=== PATIENT | male | born 1980 | race Two or more races ===

== ENCOUNTER 2018-04-17 09:04 | Day surgery (SDC) | payer OTHER ==
[~2018-04-17] VITALS: Ht 162.6 cm; Wt 113.4 kg
[2018-04-17] VITALS (8 sets, daily range): BP systolic 104–152; BP diastolic 65–98
--- NOTE | 2018-04-17 08:03 | Anethesia Preoperative Eval ---
Anesthesia Pre-op PMH/ROS General Date of Evaluation: Apr 17, 2018 Time of Evaluation: 07:58 Anesthesiologist: keron ASA Score: ASA 2 Mallampati Score Class I : Soft palate, uvula, fauces, pillars visible Class II: Soft palate, uvula, fauces visible Class III: Soft palate, base of uvula visible Class IV: Only hard plate visible Mallampati Classification: Class II Surgeon: naida Diagnosis: abdominal pain Surgical Procedure: colonoscopy Anesthesia History: none Social History: smoking - former smoker Family History: no anesthesia problems Allergies: Coded Allergies: No Known Allergies (Unverified , 04/17/18) Medications: see eMAR Patient NPO?: Yes Past Medical History Pulmonary: Reports: JERONIMO Gastrointestinal/Genitourinary: Reports: other - hemorrhoids Neurologic/Psychiatric: Reports: depression/anxiety Other: obesity PSxH Narrative: orif right ankle Anesthesia Pre-op Phys. Exam Physician Exam Constitutional: NAD Neurologic: CN 2-12 intact Cardiovascular: RRR Respiratory: CTA Gastrointestinal: S/NT/ND Airway Exam Mallampati Score: Class II MO: limited Neck: short TMD: 2fb ROM: limited Anesthesia Pre-op A/P Risk Assessment & Plan Assessment: asa2 Plan: mac Status Change Before Surgery: No Pre-Antibiotics Drug: Jovanna Mendez MD Apr 17, 2018 08:03
[~2018-04-17 09:04] MED LIST: Atropine Inj 1mg/10ml Syr IV PRN; DiphenhydrAMINE 50mg/ml Inj IVP PRN; Midazolam 2mg/2ml Inj IVP PRN; fentaNYL 100 mcg/2 mL IV PRN
[2018-04-17] MEDS ORDERED: TRAMADOL HCL50 MG ORAL (09:34)
[2018-04-17] MEDS ORDERED: GABAPENTIN300 MG ORAL (09:34)
[2018-04-17] MEDS ORDERED: PREDNISONE20 MG ORAL (09:34)
[2018-04-17] MEDS ORDERED: CYCLOBENZAPRINE10 MG ORAL (09:34)
[2018-04-17] MEDS ORDERED: HYOSCYAMINE0.125 M2 PO (09:34)
[2018-04-17] MEDS ORDERED: OMEPRAZOLE20 M2 ORAL (09:34)
--- NOTE | 2018-04-17 09:56 | Short Stay Surgery H&P ---
History of Present Illness History of Present Illness Chief Complaint Rectal bleeding/abdominal pains ANTHONY Triplett is a 37 year old male who was admitted on for Rectal bleeding /abdominal pains. Patient History Allergies: Coded Allergies: No Known Allergies (Unverified , 04/17/18) Medication History Scheduled Cyclobenzaprine Hcl* (Flexeril*), 10 MG ORAL BEDTIME, (Reported) Gabapentin* (Gabapentin*), 300 MG ORAL BID, (Reported) Hyoscyamine Sulfate (Hyoscyamine Sulfate), 0.125 MG PO DAILY, (Reported) Omeprazole (Omeprazole), 20 MG ORAL DAILY, (Reported) Prednisone* (Prednisone*), 20 MG ORAL BID, (Reported) Scheduled PRN Tramadol Hcl* (Ultram*), 50 MG ORAL BID PRN for For Pain, (Reported) Review of Systems Cardiovascular: Reports: no symptoms Respiratory: Reports: no symptoms Skeletal: Reports: trauma Gastrointestinal: Reports: other Genitourinary: Reports: no symptoms Neurologic: Reports: no symptoms Endocrine: Reports: no symptoms Hematologic: Reports: no symptoms Physical Exam Vital Signs Last Vital Signs Date Time Temp Pulse Resp B/P (MAP) Pulse Ox O2 Delivery O2 Flow Rate FiO2 04/17/18 09:34 Room Air 04/17/18 09:29 97.5 67 20 113/70 96 Skin: normal HENT: normal Heart: normal Lungs: normal Abdomen: abnormal Extremities: normal Genitourinary: normal Plan Plan of Care Total colonoscopy Preop Interventions None. Summary of Findings See the reports Attestation Are the patient's medical conditions optimized for surgery? Attestation Response: yes Canelo Schroeder MD Apr 17, 2018 09:56
--- NOTE | 2018-04-17 09:58 | Pre-Procedure Note/Attestation ---
Pre-Procedure Note/Attestation Complete Prior to Procedure Planned Procedure: left Procedure Narrative: Examination of the colon via colonoscopy Indications for Procedure Pre-Operative Diagnosis: R/O hemorrhoids /polyps/colitis Attestation I attest that I discussed the nature of the procedure; its benefits; risks and complications; and alternatives (and the risks and benefits of such alternatives ), prior to the procedure, with the patient (or the patient's legal territory representative). I attest that, if there was a reasonable possibility of needing a blood transfusion, the patient (or the patient's legal territory representative) was given the [facility] standardized written summary, pursuant to the [place] Blood Safety Act ([place] Health and Safety Code # 1645, as amended). I attest that I re-evaluated the patient just prior to the surgery and that there has been no change in the patient's H&P, except as documented below: Canelo Schroeder MD Apr 17, 2018 09:58
[2018-04-17] MEDS ORDERED: Lidocaine 1% MPF 10mg/ml 5ml ONE (10:00)
[2018-04-17] MEDS ORDERED: LR 1000ml ONE (10:00)
[2018-04-17] MEDS ORDERED: Propofol 200mg/20ml IV ONE (10:00)
--- NOTE | 2018-04-17 10:26 | Endoscopy Procedure Note ---
Endoscopy Procedure Note General Indication for Procedure: Rectal bleedin/abdominal pains Procedures Performed: colonoscopy - Grade I friable internal hemorrhoids. 3mm hyperplastic polyp at low decending colon removed by cold biopsy forceps. Poor colon prep. Specimen: yes Pt Tolerated Procedure Well: Yes Estimated Blood Loss: none Anesthesia Anesthesiologist: Dr. Ruelas Anesthesia: moderate sedation Medications Medication Given: see anesthesia record Inserted Devices Implant(s) used?: No Quality Quality of Bowel Preparation: Poor Did scope reach the cecum?: No Was there any complications?: No GI Core Measures 50 yrs or older w/o bx or poly: No 10yrs. F/U not recommended: Yes If not recommended, why?: Above average risk 10 yrs. F/U needed: Yes 18 years or older w/prev. colo: No <3yrs. since last colonoscopy: Yes Med reason:<3 yrs.: System Reason:<3 yrs.: Last colonoscopy >= to 3yrs: Yes Canelo Schroeder MD Apr 17, 2018 10:26
--- NOTE | 2018-04-17 10:28 | Discharge Instructions ---
Discharge Instructions Discharge Instructions Follow up with: Visit doctor after 2 weeks in the office. Call first. For Congestive Heart Failure Reminder Report to your physician any weight gain of 5 pounds or more in one week. Canelo Schroeder MD Apr 17, 2018 10:28
--- NOTE | 2018-04-17 12:05 | Immediate Post-Op Evaluation ---
Immediate Post-Op Evalulation Immediate Post-Op Evalulation Procedure: colonoscopy w/ bx Date of Evaluation: Apr 17, 2018 Time of Evaluation: 10:47 IV Fluids: 300ml lr Blood Products: none Estimated Blood Loss: negligible Blood Pressure Systolic: 125 Blood Pressure Diastolic: 90 Pulse Rate: 68 Respiratory Rate: 18 O2 Sat by Pulse Oximetry: 99 Temperature (Fahrenheit): 97.5 Pain Score (1-10): 0 Nausea: No Vomiting: No Complications none Patient Status: awake, reacts, patent Hydration Status: adequate Drug: Jovanna Mendez MD Apr 17, 2018 12:05
--- NOTE | 2018-04-17 12:06 | 48 Hour Post Anesthesia Eval ---
Post Anesthesia Evaluation Procedure: colonoscopy w/ bx Date of Evaluation: Apr 17, 2018 Time of Evaluation: 10:49 Blood Pressure Systolic: 120 0: 85 Pulse Rate: 66 Respiratory Rate: 18 Temperature (Fahrenheit): 97.5 O2 Sat by Pulse Oximetry: 99 Airway: patent Nausea: No Vomiting: No Pain Intensity: 0 Hydration Status: adequate Cardiopulmonary Status: stable Mental Status/LOC: patient returned to baseline Post-Anesthesia Complications: none Follow-up care needed: N/A Jovanna Ruelas MD Apr 17, 2018 12:06
--- NOTE | 2018-04-17 15:15 | Pre-op HX & Phy Repo 2 SIG ---
DATE OF ADMISSION: 04/17/2018 HISTORY OF PRESENT ILLNESS: This examination is being done preoperatively before the patient was supposed to undergo the colonoscopic examination as it is needed for preoperative clearance. Therefore, this examination required time in subject to compensation and billing. 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 Subsequently to the injury, he started to receive multiple medications including nonsteroidal anti-inflammatory agents, etc and gradually he started to suffer from GI symptoms that mostly included rectal bleeding along with the periods of intermittent constipation and diarrhea. At this time, the applicant is complaining of frequent rectal bleeding which occurs on a daily basis. It is intermittent in nature. He reports to me that he did not have any similar conditions in the past before being injured at job site and received his medications including strong analgesic agents that he is currently taking such as tramadol. He also complains of pain over the lower part of the abdomen, particularly in the right side. The pains are mostly aggravated by eating foods. As I mentioned, he does have problem with passage of the stool, mostly suffer from constipation, which gave rise to a rectal bleeding as well. There is no nausea, vomiting, hematemesis, melena. He has been also having history of heartburn for which he has been taking omeprazole, which is quite stable at this time and none significant. The rectal bleeding as I mentioned is mostly small amount mostly over the water in the bathroom. He also reports to me that he has had history of umbilical hernia, which is not significant and not related to present injury from work. He denies having difficulty swallowing. He reports to me that he has gained significant number of weight subsequent to his work injury due to lack of physical activity. As I mentioned, he was injured at job site because of the lifting heavy object and he developed dorsal lumbar disc disease. PAST MEDICAL HISTORY: Basically none significant. He denies hypertension, high cholesterol, diabetes, thyroid condition, etc. PAST SURGICAL HISTORY: He has had surgery for dorsolumbar disk disease and surgery over his ankle in the past. ALLERGIES: None. CHILDHOOD DISEASES: None significant HABITS: He denies drinking alcohol or smoking cigarettes and does not use illicit drugs. MEDICATIONS: Current medications tramadol, omeprazole, and gabapentin. REVIEW OF SYSTEMS: Basically history of present illness as he does have pain over his both knees and lower back area, he mentions to me. PHYSICAL EXAMINATION: GENERAL: Reveals alert, well oriented gentleman, does not seem to be in acute distress and looks overweight and obese, well developed and nourished. VITAL SIGNS: All stable. HEENT: Normocephalic. Pupils are equal in size and reactive to light and accommodation. No visible jaundice. Buccal cavity, tongue midline, well hydrated. No ulcers. NECK: Supple. No JVD, thyromegaly, or adenopathy. CHEST: Clear to auscultation and percussion. No rales or rhonchi. HEART: S1 and S2 normal. Regular rhythm. No gallops or murmur. ABDOMEN: Soft and obese, but basically is tender on the lower part of the abdomen on both side, but mostly in the left side of the abdomen. There is no palpable mass. No organomegaly. EXTREMITIES: Unremarkable. SKIN AND LYMPHATICS: Nonsignificant. PRELIMINARY PREOPERATIVE IMPRESSION: 1. History of rectal bleeding of uncertain etiology, rule out constipation induced hemorrhoids, rule out NSAID-induced colitis, polyps, tumors etc. 2. Generalized abdominal pain, possibly consistent with irritable bowel syndrome, IBS exacerbated by side effects of medication use for the treatment of bodily injury, anxiety and stress related to work accident. 3. History of umbilical hernia, hernia and obesity. RECOMMENDATIONS: I examined the patient at this time and he seems to be stable to undergo the procedure of colonoscopic examination for which he has been scheduled. He understands the risks and benefits and will sign the consent. Said Carin Schroeder DR: Bandar JOB#: [id number] CC:
--- NOTE | 2018-04-17 15:30 | Operative Note - Dictated ---
DATE OF OPERATION: 04/17/2018 SURGEON: Canelo Schroeder M.D. PROCEDURE: Total colonoscopy and polypectomy. PREOPERATIVE DIAGNOSES: 1. History of rectal bleeding. 2. Abdominal pain. POSTOPERATIVE DIAGNOSES: 1. Grade 1 friable bleeding internal hemorrhoid, mostly cause of the patient's complaint of rectal bleeding. 2. A 3 mm hyperplastic polypoid lesion found over the distal descending colon removed with cold biopsy forceps, otherwise normal total colonoscopy. 3. Poor colonic preparation. MEDICATION USED: Per Dr. Gould. INSTRUMENT: GIF Olympus video colonoscope. DESCRIPTION OF PROCEDURE: The patient after arriving endoscopy unit, was told about risks and the benefits of the procedure, which he accepted and signed informed consent. He was then put on the left lateral decubitus position. After adequate IV sedation, the scope was gently passed through the anal area, which revealed evidence of grade 1 internal hemorrhoids, but they were quite friable and the passage of the scope caused bleeding of some minimal amount, which finally stopped by itself. A retroflexion maneuver was applied in the rectum, which revealed and confirmed the presence of grade 1 internal hemorrhoids and, however, there was no any intrarectal pathology such as tumor, polyps, colitis, etc. Finally, the scope was passed through the left colon reaching towards the splenic flexure, transverse colon, and right colon all the way to the base of the cecum. At the level of 50 cm from the anal opening, which was consistent with distal descending colon, there was a 3 mm hyperplastic polypoid lesion, which looked quite benign and it was grabbed with cold biopsy forceps and totally removed. The site of polypectomy did not reveal any bleeding. The colon cleanup was quite poor and as such, the small polypoid lesion could not be ruled out, however, there was no any gross pathology as I mentioned earlier. However, at this point, after reaching to the base of the cecum within 7 minutes, the scope was gradually pulled out and examination did not reveal any other pathology to mention. The patient tolerated the procedure well and left the endoscopy room in a good condition. Canelo Schroeder M.D. DR: BHARATI JOB#: [id number] CC:
== END 2018-04-17 11:40 | disposition home or self-care (01) ==
LOC: GAS 09:04
DX: R10.9 Unspecified abdominal pain (principal); D12.4 Benign neoplasm of descending colon; K64.8 Other hemorrhoids; G47.33 Obstructive sleep apnea (adult) (pediatric); F32.9 Major depressive disorder, single episode, unspecified; F41.9 Anxiety disorder, unspecified; E66.9 Obesity, unspecified; Z87.891 Personal history of nicotine dependence
CPT/HCPCS: 45380; J2704; 94003; 94150